=== PATIENT | female | born 1990 | race African-American/Black ===

== ENCOUNTER 2020-05-15 10:11 | Observation (INO) | payer MEDICAID ==
[~2020-05-15] VITALS: Ht 157.5 cm; Wt 77.6 kg
[~2020-05-15 10:11] MED LIST: FERR-43 PO
[2020-05-15] MEDS ORDERED: LACTATED RINGERS 1,000 ML IV SCH (12:00)
== END 2020-05-15 15:10 | disposition home or self-care (01) ==
LOC: 8 EST LDRP 10:11
PROVIDERS: ADMIT Specialist; ATTEND Specialist
DX: O26.893 Other specified pregnancy related conditions, third trimester (principal); R10.9 Unspecified abdominal pain; Z3A.30 30 weeks gestation of pregnancy
CPT/HCPCS: 36415; 59025; 86850; 86900; 86901; 90384; 96360; 96361; 96372; G0378; 99281